=== PATIENT | female | born 1950 | race Caucasian/White ===

== ENCOUNTER 2017-11-03 07:11 | Day surgery (SDC) | payer MEDICARE ==
[~2017-11-03] VITALS: Ht 154.9 cm; Wt 70.5 kg
[~2017-11-03 07:11] MED LIST: ALBU8HFA4 IH; ALEN70TA48 PO; AMLO-511 PO; ASCO500 PO; BECL8.7A5 IH; CALC-1009 PO; CELE200 PO; FLUT16H NASAL; GLUC-56 PO; HYDR-3971 PO; MONT10TA21 PO; OMEG-12 PO; SALMH IH; SUCR1TAB PO; VITA-328 PO; VITAD400 PO; [UNRECOGNIZED DRUG - OTHER] PO
[2017-11-03] MEDS ORDERED: SODIUM CHLORIDE 0.9% 1,000 ML IV ONE ×2 (07:18→07:30)
[2017-11-03 07:53] LABS: GLUCOMETER DEV NAME(LOC) SDS 5; GLUCOSE,POINT OF CARE 110 MG/DL (70-110)
[2017-11-03] MEDS ORDERED: MIDAZOLAM HCL 2 MG/2 ML VIAL ONE (08:03)
[2017-11-03] MEDS ORDERED: FentaNYL CITRATE-PF 100 MCG/2 ML VIAL ONE (08:04)
[2017-11-03] MEDS ORDERED: MethylPREDNISolone SOD SUCC 125 MG/2 ML VIAL IVP ONE (09:15)
[2017-11-03] MEDS ORDERED: MethylPREDNISolone SOD SUCC 125 MG/2 ML VIAL ONE (09:31)
[2017-11-03] MEDS ORDERED: ALBUTEROL SULFATE 2.5 MG/0.5 ML NEB SOLUTION NEB ONE (17:20)
[2017-11-03] MEDS ORDERED: LIDOCAINE HCL 4% 50 ML SOLUTION ONE (17:20)
[2017-11-03] MEDS ORDERED: LIDOCAINE HCL 2% 30 ML JELLY ONE (17:20)
[2017-11-03] MEDS ORDERED: BENZOCAINE 20% 50 MCG/SPRAY 57 GM ONE (17:20)
[2017-11-03] MEDS ORDERED: OXYGEN THERAPY IH SCH (20:00)
== END 2017-11-03 10:25 | disposition home or self-care (01) ==
LOC: SURGERY 07:11
PROVIDERS: ATTEND Internal Medicine Critical Care Medicine
DX: J38.4 Edema of larynx (principal); B37.0 Candidal stomatitis; E11.9 Type 2 diabetes mellitus without complications; K21.9 Gastro-esophageal reflux disease without esophagitis; M19.90 Unspecified osteoarthritis, unspecified site; J43.9 Emphysema, unspecified; F12.21 Cannabis dependence, in remission; J84.111 Idiopathic interstitial pneumonia, not otherwise specified; Z87.891 Personal history of nicotine dependence; Z72.89 Other problems related to lifestyle; Z98.890 Other specified postprocedural states; Z98.51 Tubal ligation status; Z91.013 Allergy to seafood; Z88.6 Allergy status to analgesic agent; Z88.0 Allergy status to penicillin; Z88.1 Allergy status to other antibiotic agents; Z88.3 Allergy status to other anti-infective agents; Z79.899 Other long term (current) drug therapy
CPT/HCPCS: 31623; 31624; 71045; 82962; 87015; 87070; 87147; 87205; 87220; 88108; 88312; J2250; J2930; J3010; J7030